=== PATIENT | female | born 1995 | race Caucasian/White ===

== ENCOUNTER 2023-10-23 01:03 | Emergency (ER) | payer OTHER, MEDICAID, SELFPAY ==
[2023-10-23 01:21] VITALS: BP 121/65; PULSE 81; RESP 22; O2SAT 99
[2023-10-23 01:24] VITALS: BP 121/65; PULSE 81; RESP 22; TEMP 36.4; O2SAT 99; BMI 56.5
[2023-10-23] MEDS: ACETAMINOPHEN 325 MG TABLET 975 MG PO (01:44)
[2023-10-23] MEDS: KETOROLAC 30 MG/ML VIAL IM (01:45)
--- NOTE | 2023-10-23 01:51 | ED.BACK ---
HPI - Back Pain/Injury General Chief Complaint: Back Pain/Injury Stated Complaint: back pain Time Seen by Provider: 10/23/23 01:30 Source: patient History of Present Illness HPI Narrative: A 28-year-old female with history of back pain as well as bipolar disorder polycystic ovaries migraines who presents today with low back pain. This is not associated with any traumatic injury, she does not have a fever she is not had any problems with urination or problems with bowel or bladder control. She has Toradol for this to use at home but has not taken any in over 24 hours. Also has a prescription for cyclobenzaprine at home and took a dose of oxycodone left over from recent surgery. Does not use injection drugs, is not . Related Data Home Medications Medication Instructions Recorded Confirmed bupropion HCl 150 mg tablet,12 hr 150 mg PO QDAY ##0 06/05/16 sustained-release (Wellbutrin SR) citalopram 20 mg tablet 40 mg PO QDAY ##0 06/05/16 norethindrone acetate 1 mg-ethinyl 1 tab PO ##0 09/15/16 estradiol 20 mcg tablet (Loestrin) Previous Rx's Medication Instructions Recorded loperamide 2 mg-simethicone 125 mg 1 tab PO SEE INSTRUCTIONS PRN #20 09/15/16 tablet (Imodium Multi-Symptom tabs Relief) ondansetron 4 mg disintegrating 4 mg sublingual Q6HP PRN ##10 09/15/16 tablet (Zofran ODT) Allergies Allergy/AdvReac Type Severity Reaction Status Date / Time No Known Drug Allergies Allergy Verified 10/23/23 01:48 Patient History Social History Smoking Status: Former smoker Smoking Status: Former smoker tobacco type: vaping Substance Use Type: marijuana Exam Initial Vital Signs Initial Vital Signs: Vital Signs Pulse Rate 81 10/23/23 01:21 Respiratory Rate 22 10/23/23 01:21 Blood Pressure 121/65 10/23/23 01:21 Pulse Oximetry 99 10/23/23 01:21 Const General: No acute distress Resp Effort & Inspection: normal respiratory effort and able to speak in complete sentences Cardio Rate: regular rate Skin General: no rashes or lesions noted Neuro General: patient alert and patient oriented x3 Motor: muscle tone normal throughout and strength 5/5 throughout Sensory Exam: no sensory deficits noted DTR's: Rt Patellar: 1+ and Lt Patellar: 1+ Course Orders Ordered: Discontinued Medications Acetaminophen (Acetaminophen 325 Mg Tablet) 975 mg PO NOW ONE Stop: 10/23/23 01:38 Last Admin: 10/23/23 01:44 Dose: 975 mg Documented By: DAGMAR Ketorolac Tromethamine (Ketorolac 30 Mg/Ml Vial) 30 mg IM NOW ONE Stop: 10/23/23 01:38 Last Admin: 10/23/23 01:45 Dose: 30 mg Documented By: DAGMAR Vital Signs Vital signs: Vital Signs - 8 hr 10/23/23 01:21 10/23/23 01:24 Temperature 97.5 F L Pulse Rate 81 81 Respiratory Rate 22 22 Blood Pressure 121/65 121/65 Pulse Oximetry 99 99 Oxygen Delivery Method Room Air MDM - Back Pain/Injury Differential Diagnosis Differential diagnosis: Likely strain of lumbar region, discitis and other (Cauda equina syndrome) Condition is:: Improved MDM Narrative Medical decision making narrative: 28-year-old female with a history of back pain presenting with low back pain. There are no red flag features associated, is not have any new weakness I considered but do not suspect epidural abscess or cauda equina syndrome. Recommended NSAIDs and acetaminophen for symptom control. Recommended primary care follow-up. Discharge Plan Departure Patient Disposition: Home Clinical Impression: Acute back pain Instructions: DI for Back Spasm Activity Restrictions/Additional Instructions: I do not think there is a serious cause for her back pain today. You can use Toradol at home as previously prescribed or ibuprofen 600 mg 3 times a day. Do not take both Toradol and ibuprofen. You can also use acetaminophen (Tylenol) 650 or 975 mg up to 3 times a day. You can use previously prescribed cyclobenzaprine as well. Activity as tolerated. It is actually important to get up and move around a little bit but try to avoid bending or heavy lifting. Make an appointment to follow up soon with her primary care provider. Return to the emergency department for fevers or if unable to urinate. Prescriptions: No Action bupropion HCl [Wellbutrin SR] 150 MG tablet extended release 12 hr 150 mg PO QDAY Qty: 0 citalopram 20 MG tablet 40 mg PO QDAY Qty: 0 norethindrone ac-eth estradiol [Loestrin 12/02 ()] 1 MG/20 MCG tablet 1 tab PO Qty: 0 ondansetron [Zofran ODT] 4 MG tablet,disintegrating 4 mg Sublingual Q6HP PRNQty: 10 0RF loperamide-simethicone [Imodium Multi-Symptom Relief] 2 MG/125 MG tablet 1 tab PO SEE INSTRUCTIONS PRNQty: 20 0RF Referrals: Josué Middleton MD [Primary Care Provider] - Stand Alone Forms: Patient Portal/API
== END 2023-10-23 01:58 | disposition home or self-care (01) ==
PROVIDERS: Emergency Provider Emergency Medicine; Family Provider Family Medicine; PCP Family Medicine
DX: M54.50 Low back pain, unspecified (principal)
CPT/HCPCS: 96372; 99283; J1885